=== PATIENT | male | born 1985 | race Hispanic/Latino ===

== ENCOUNTER 2023-07-14 23:50 | Inpatient (IN) | payer OTHER ==
[~2023-07-14] VITALS: Ht 154.9 cm; Wt 46.3 kg
[2023-07-15] VITALS (8 sets, daily range): BP systolic 119–149; BP diastolic 80–92; PULSE 63–80; RESP 16–19; O2SAT 98–99
[2023-07-15 00:25] LABS: BASOPHILS # (AUTO) 0.04 K/uL (0.00-0.20); BASOPHILS % (AUTO) 0.4 % (0.0-5.0); EOSINOPHILS # (AUTO) 0.19 K/uL (0.00-0.70); HEMATOCRIT 30.4 % (36-48); IMMATURE GRANULOCYTE ABSOLUTE 0.02 K/uL (0-1); LYMPHOCYTES # (AUTO) 2.1 K/uL (1.0-4.8); LYMPHOCYTES % (AUTO) 22.4 % (21.0-51.0); MEAN CORPUSCULAR HGB CONC 33.2 g/dL (32.0-36.0); MEAN CORPUSCULAR VOLUME 90.2 fL (79-99); MONOCYTES # (AUTO) 0.9 K/uL (0.1-1.0); MONOCYTES % (AUTO) 9.6 % (3.0-13.0); NEUTROPHILS # (AUTO) 6.1 K/uL (1.8-7.7); NEUTROPHILS % (AUTO) 65.4 % (40.0-77.0); PLATELET COUNT (AUTO) 108 K/uL (130-400); RED BLOOD CELL COUNT(AUTO) 3.37 MIL/uL (4.00-5.50); RED CELL DISTRIBUTION WIDTH 12.9 % (11.0-15.5); WHITE BLOOD COUNT (AUTO) 9.4 K/uL (4.8-10.8)
[2023-07-15] MEDS ORDERED: FAMOTIDINE 20MG VIAL IV ONE (00:30)
[2023-07-15] MEDS ORDERED: METOCLOPRAMIDE 10 MG/2 ML VIAL IVP ONE (00:30)
[2023-07-15] MEDS ORDERED: KETOROLAC 30MG VIAL (30MG/ML) IVP ONE (00:30)
[2023-07-15] MEDS ORDERED: 0.9%NACL 1000ML 1,000 ML IV ONE (00:30)
[2023-07-15 00:35] LABS: CREATININE 1.1 mg/dL (0.5-1.5); POTASSIUM 3.3 mmol/L (3.5-5.1)
[2023-07-15 00:40] LABS: ALBUMIN 3.5 g/dL (3.5-5.0); BILIRUBIN,TOTAL 0.4 mg/dL (0.2-1.0); TOTAL PROTEIN, SERUM 7.3 g/dL (6.0-8.3)
[2023-07-15] MEDS ORDERED: MAGNESIUM 2GM PREMIX 50ML 50 ML IV PRN ×2 (04:00→09:00)
[2023-07-15] MEDS ORDERED: ONDANSETRON 4MG INJ IV PRN (04:00)
[2023-07-15] MEDS ORDERED: POTASSIUM CHLORIDE 20MEQ/100ML 100 ML IV PRN ×2 (04:00→09:00)
[2023-07-15] MEDS ORDERED: PHARMACY COMMUNICATION MISC SCH (04:00)
[2023-07-15] MEDS: LACTATED RINGERS 1000ML 1,000 ML IV SCH ×2 (05:54→17:45)
[2023-07-15 07:07] LABS: BASOPHILS # (AUTO) 0.04 K/uL (0.00-0.20); BASOPHILS % (AUTO) 0.5 % (0.0-5.0); EOSINOPHILS # (AUTO) 0.31 K/uL (0.00-0.70); HEMATOCRIT 31.6 % (42-54); IMMATURE GRANULOCYTE ABSOLUTE 0.02 K/uL (0-1); LYMPHOCYTES # (AUTO) 2.9 K/uL (1.0-4.8); LYMPHOCYTES % (AUTO) 37.4 % (21.0-51.0); MEAN CORPUSCULAR HGB CONC 32.3 g/dL (32.0-36.0); MEAN CORPUSCULAR VOLUME 92.9 fL (79-99); MONOCYTES # (AUTO) 0.9 K/uL (0.1-1.0); MONOCYTES % (AUTO) 11.5 % (3.0-13.0); NEUTROPHILS # (AUTO) 3.6 K/uL (1.8-7.7); NEUTROPHILS % (AUTO) 46.3 % (40.0-77.0); PLATELET COUNT (AUTO) 86 K/uL (130-400); RED CELL DISTRIBUTION WIDTH 13.2 % (11.0-15.5); WHITE BLOOD COUNT (AUTO) 7.7 K/uL (4.8-10.8)
[2023-07-15 07:45] LABS: INR < 0.93 (0.85-1.15); PROTHROMBIN TIME 10.7 SEC (9.6-11.6)
[2023-07-15 07:47] LABS: PARTIAL THROMBOPLASTIN TIME 32.1 SEC (26.3-35.5)
[2023-07-15] MEDS: LEVOFLOXACIN 250 MG/D5W 50ML 50 ML IVPB SCH (08:21)
[2023-07-15] MEDS: FAMOTIDINE 20MG VIAL IV SCH ×2 (08:21→20:02)
[2023-07-15 08:27] LABS: ERYTHROCYTE SEDIMENTATION RATE 25 MM/HR (0-15)
[2023-07-15 09:08] LABS: BILIRUBIN,TOTAL 0.3 mg/dL (0.2-1.0); POTASSIUM 3.7 mmol/L (3.5-5.1); TOTAL PROTEIN, SERUM 6.4 g/dL (6.0-8.3)
[2023-07-15 09:34] LABS: % IRON SATURATION 9.5 % (30-44)
[2023-07-15] MEDS: KETOROLAC 15MG/ML VIAL (15MG/ML) IV PRN ×2 (11:59→20:02)
[2023-07-15 23:13] LABS: APPEARANCE,URINE CLEAR (CLEAR); BILIRUBIN,URINE NEGATIVE (NEGATIVE); COLOR,URINE LIGHT-YELLOW (YELLOW); GLUCOSE, URINE (UA) NEGATIVE (NEGATIVE); KETONES,URINE NEGATIVE (NEGATIVE); LEUKOCYTE ESTERASE ,URINE 25 Leu/uL (NEGATIVE); NITRATE,URINE NEGATIVE (NEGATIVE); OCCULT BLOOD,URINE NEGATIVE (NEGATIVE); PROTEIN,URINE NEGATIVE (NEGATIVE); UROBILINOGEN,URINE 0.2 mg/dL (0.2-1.0)
[2023-07-15 23:17] LABS: ADD UA MICROSCOPIC YES
[2023-07-15 23:18] LABS: MUCUS,URINE RARE LPF (None Seen)
[2023-07-16] VITALS (9 sets, daily range): BP systolic 111–137; BP diastolic 74–87; PULSE 71–96; RESP 17–18; TEMP 101.7; O2SAT 98
[2023-07-16] MEDS ORDERED: HYDROMORPHONE 0.5 MG SYG (0.5MG/0.5ML) IVP ONE
[2023-07-16] MEDS: KETOROLAC 15MG/ML VIAL (15MG/ML) IV PRN (04:11)
[2023-07-16 05:18] LABS: BASOPHILS # (AUTO) 0.02 K/uL (0.00-0.20); BASOPHILS % (AUTO) 0.3 % (0.0-5.0); EOSINOPHILS # (AUTO) 0.17 K/uL (0.00-0.70); EOSINOPHILS % (AUTO) 2.2 % (0.0-8.0); HEMATOCRIT 31.2 % (42-54); IMMATURE GRANULOCYTE ABSOLUTE 0.03 K/uL (0-1); LYMPHOCYTES # (AUTO) 2.8 K/uL (1.0-4.8); LYMPHOCYTES % (AUTO) 36.2 % (21.0-51.0); MEAN CORPUSCULAR HEMOGLOBIN 30.6 pg (27.0-33.0); MEAN CORPUSCULAR HGB CONC 32.4 g/dL (32.0-36.0); MEAN CORPUSCULAR VOLUME 94.5 fL (79-99); MONOCYTES # (AUTO) 0.8 K/uL (0.1-1.0); MONOCYTES % (AUTO) 10.6 % (3.0-13.0); NEUTROPHILS # (AUTO) 3.9 K/uL (1.8-7.7); NEUTROPHILS % (AUTO) 50.3 % (40.0-77.0); PLATELET COUNT (AUTO) 90 K/uL (130-400); RED CELL DISTRIBUTION WIDTH 13.4 % (11.0-15.5); WHITE BLOOD COUNT (AUTO) 7.7 K/uL (4.8-10.8)
[2023-07-16 05:23] LABS: MAGNESIUM 1.7 mg/dL (1.80-2.40); POTASSIUM 3.6 mmol/L (3.5-5.1)
[2023-07-16] MEDS ORDERED: KCL 20 MEQ ERTAB PO PRN (06:00)
[2023-07-16] MEDS ORDERED: POTASSIUM CHLORIDE 20MEQ/100ML 100 ML IV PRN (06:00)
[2023-07-16] MEDS: POTASSIUM CHLORIDE 10% ELIXIR 20 MEQ/15 ML UDCUP PO PRN ×2 (06:04→16:01)
[2023-07-16] MEDS: LACTATED RINGERS 1000ML 1,000 ML IV SCH (06:40)
[2023-07-16] MEDS: FAMOTIDINE 20MG VIAL IV SCH ×2 (09:02→20:07)
[2023-07-16] MEDS: LEVOFLOXACIN 250 MG/D5W 50ML 50 ML IVPB SCH (09:03)
[2023-07-16] MEDS: HYDROMORPHONE 0.5 MG SYG (0.5MG/0.5ML) IVP PRN ×3 (09:40→20:07)
[2023-07-16] MEDS ORDERED: ACETAMINOPHEN 325 MG TAB PO PRN (20:30)
[2023-07-17] MEDS: LACTATED RINGERS 1000ML 1,000 ML IV SCH ×2 (00:49→09:20)
[2023-07-17] MEDS: HYDROMORPHONE 0.5 MG SYG (0.5MG/0.5ML) IVP PRN ×5 (00:50→20:21)
[2023-07-17 04:00] VITALS: BP 144/94; PULSE 83; RESP 18
[2023-07-17 08:00] VITALS: BP 124/87; PULSE 81; RESP 16; O2SAT 95
[2023-07-17] MEDS: LEVOFLOXACIN 250 MG/D5W 50ML 50 ML IVPB SCH (10:11)
[2023-07-17 12:00] VITALS: BP 130/74; PULSE 81; RESP 16
[2023-07-17 16:00] VITALS: BP 134/86; PULSE 94; RESP 20
[2023-07-17 19:25] VITALS: BP 134/76; PULSE 104; RESP 20
[2023-07-17] MEDS: FAMOTIDINE 20MG VIAL IV SCH ×2 (20:21→21:14)
[2023-07-17 23:18] VITALS: BP 135/78; PULSE 92; RESP 19
[2023-07-18] VITALS (12 sets, daily range): BP systolic 97–147; BP diastolic 58–102; PULSE 70–95; RESP 16–22; O2SAT 97
[2023-07-18] MEDS: HYDROMORPHONE 0.5 MG SYG (0.5MG/0.5ML) IVP PRN ×3 (00:01→16:59)
[2023-07-18] MEDS: LEVOFLOXACIN 250 MG/D5W 50ML 50 ML IVPB SCH (08:54)
[2023-07-18] MEDS: FAMOTIDINE 20MG VIAL IV SCH ×2 (08:55→20:00)
[2023-07-18] MEDS ORDERED: FENTANYL CITRATE PF 50 MCG/1 ML 2ML VIAL ONE (12:31)
[2023-07-18] MEDS ORDERED: MIDAZOLAM HCL 1 MG/ML 2ML VIAL ONE ×2 (12:31→13:00)
[2023-07-18 15:06] LABS: BASOPHILS # (AUTO) 0.03 K/uL (0.00-0.20); BASOPHILS % (AUTO) 0.3 % (0.0-5.0); EOSINOPHILS # (AUTO) 0.16 K/uL (0.00-0.70); EOSINOPHILS % (AUTO) 1.5 % (0.0-8.0); HEMATOCRIT 35.4 % (42-54); IMMATURE GRANULOCYTE ABSOLUTE 0.03 K/uL (0-1); LYMPHOCYTES # (AUTO) 1.8 K/uL (1.0-4.8); LYMPHOCYTES % (AUTO) 17.4 % (21.0-51.0); MEAN CORPUSCULAR HEMOGLOBIN 29.6 pg (27.0-33.0); MEAN CORPUSCULAR HGB CONC 32.2 g/dL (32.0-36.0); MEAN CORPUSCULAR VOLUME 91.9 fL (79-99); MONOCYTES # (AUTO) 1.4 K/uL (0.1-1.0); MONOCYTES % (AUTO) 13.6 % (3.0-13.0); NEUTROPHILS % (AUTO) 66.9 % (40.0-77.0); PLATELET COUNT (AUTO) 179 K/uL (130-400); RED BLOOD CELL COUNT(AUTO) 3.85 MIL/uL (4.50-6.20); RED CELL DISTRIBUTION WIDTH 13.2 % (11.0-15.5); WHITE BLOOD COUNT (AUTO) 10.4 K/uL (4.8-10.8)
[2023-07-18] MEDS: ACETAMINOPHEN WITH CODEINE 1 TAB TAB PO PRN (21:18)
[2023-07-19 00:11] VITALS: BP 110/66; PULSE 68; RESP 20
[2023-07-19] MEDS: ACETAMINOPHEN WITH CODEINE 1 TAB TAB PO PRN ×3 (01:24→11:19)
[2023-07-19 03:48] VITALS: BP 123/69; PULSE 71; RESP 18
[2023-07-19 07:35] LABS: ALBUMIN 2.8 g/dL (3.5-5.0); BILIRUBIN,TOTAL 0.3 mg/dL (0.2-1.0); CREATININE 1.1 mg/dL (0.5-1.5); MAGNESIUM 2.2 mg/dL (1.80-2.40); POTASSIUM 4.9 mmol/L (3.5-5.1); TOTAL PROTEIN, SERUM 7.1 g/dL (6.0-8.3)
[2023-07-19 08:00] VITALS: BP 111/72; PULSE 72; RESP 17; O2SAT 98
[2023-07-19] MEDS: FAMOTIDINE 20MG VIAL IV SCH (10:00)
[2023-07-19] MEDS: LEVOFLOXACIN 250 MG/D5W 50ML 50 ML IVPB SCH (10:00)
[2023-07-19 12:00] VITALS: BP 100/60; PULSE 80; RESP 16
== END 2023-07-19 16:00 | disposition home or self-care (01) | DRG 844 ==
LOC: EDH 23:50 → EDSEX 23:50 → EDHIP 23:51 → 3DH 07-15 05:30
PROVIDERS: ADMIT Hospitalist; ATTEND Hospitalist
PROC: 0WBH3ZX Excision of Retroperitoneum, Percutaneous Approach, Diagnostic (ICD-10-PCS; principal; 2023-07-18)
DX: C48.0 Malignant neoplasm of retroperitoneum (principal); C78.7 Secondary malignant neoplasm of liver and intrahepatic bile duct; E87.1 Hypo-osmolality and hyponatremia; N13.30 Unspecified hydronephrosis; Z68.1 Body mass index [BMI] 19.9 or less, adult; E44.0 Moderate protein-calorie malnutrition; R59.0 Localized enlarged lymph nodes; R19.09 Other intra-abdominal and pelvic swelling, mass and lump; D69.6 Thrombocytopenia, unspecified; R73.9 Hyperglycemia, unspecified; D64.9 Anemia, unspecified; R31.9 Hematuria, unspecified; E87.6 Hypokalemia; Z87.891 Personal history of nicotine dependence
CPT/HCPCS: 36415; 49180; 74176; 77012; 80048; 80053; 81001; 82105; 82378; 83540; 83550; 83690; 83735; 84145; 85025; 85610; 85651; 85730; 86316; 93970; 99152; 99153; G0378; J1170; J1885; J1956; J2250; J2405; J2765; J3010; J3475; J3480; J3490; C2615; G0500